=== PATIENT | female | born 1985 | race Caucasian/White ===

== ENCOUNTER 2019-07-03 19:25 | Emergency (ER) | payer SELFPAY ==
[~2019-07-03] VITALS: Ht 160 cm; Wt 68.9 kg
[2019-07-03] MEDS ORDERED: HYDROCODONE/APAP 10MG-325MG TAB PO ONE ×2 (20:30)
--- NOTE | 2019-07-03 21:18 | Diagnostic Imaging Report ---
EXAMINATION: Head CT without contrast. HISTORY:Status post fall. COMPARISON:None. TECHNIQUE: Multidetector axial images were obtained from the foramen magnum to the vertex without contrast. The images were reconstructed using brain and bone algorithms. Thin section brain images were reformatted into coronal and sagittal planes. Dose modulation, iterative reconstruction, and/or weight based adjustment of the mA/kV was utilized to reduce the radiation dose to as low as reasonably achievable. Intravenous contrast: None IMAGE QUALITY: Acceptable. FINDINGS: Skull/scalp: No lytic or blastic. lesions. No surgical changes. Parenchyma: No abnormal density. No acute hemorrhage, mass or acute major vascular territorial infarct. Arteries: No density suggestive of thrombosis. Dural sinuses: No abnormal density suggestive of thrombosis. Ventricles: No hydrocephalus or displacement. Extra-axial spaces: No abnormal density. Brain volume: Normal for age. Craniocervical junction: No mass, Chiari malformation, or basilar invagination. Sella: No mass. Paranasal/mastoid sinuses: Imaged portions unremarkable. IMPRESSION: No intracranial abnormality. Signed by: Dr. Sloane Melgoza M.D. on 07/03/2019 9:14 PM
--- NOTE | 2019-07-03 23:23 | Diagnostic Imaging Report ---
Cervical Spine, 3 views HISTORY: Pain. COMPARISON: None. FINDINGS: Limited sensitivity for detection of subtle fractures and ligamentous abnormalities. On the lateral view, the cervical spine is entirely visualized. Straightening of the cervical lordosis. No acute displaced fracture involving the visualized cervical spine. Disc Spaces and Uncovertebral Joints: Unremarkable. Facets: Mild sclerotic changes in the facets and the lower cervical spine. IMPRESSION: No acute radiographic abnormality. Minimal degenerative changes in the lower cervical spine. Signed by: Néstor Hale DO on 07/03/2019 11:19 PM
[2019-07-03 23:26] VITALS: BP 140/92
== END 2019-07-03 23:33 | disposition home or self-care (01) ==
LOC: ER 19:25
DX: S06.0X0A Concussion without loss of consciousness, initial encounter (principal); R51 Headache; M54.2 Cervicalgia; W18.30XA Fall on same level, unspecified, initial encounter; Y92.008 Other place in unspecified non-institutional (private) residence as the place of occurrence of the external cause
CPT/HCPCS: 70450; 72050; 99283

== ENCOUNTER 2019-08-16 07:56 | Emergency (ER) | payer SELFPAY ==
[~2019-08-16] VITALS: Ht 160 cm; Wt 68.9 kg
--- OUTSIDE RECORDS SUMMARY | 2019-08-16 07:59 | XMS REPORT ---
Author Author [facility] Address Unknown Phone Unavailable Care Team Providers Care Compression Molding Machine Operator Name Role Phone Abebe MADRIGAL Unavailable Unavailable Problems This patient has no known problems. Allergies, Adverse Reactions, Alerts This patient has no known allergies or adverse reactions. Medications This patient has no known medications. Results Test Description Test Time Test Comments Text Results Atomic Results Result Comments CERVICAL SPINE 4 OR 5 VIEWS 2019-07-03 23:17:00 [place] [address] Patient Name: VLAD GARZON MR #: [id number] : 1985 Age/Sex: 34/F Req #: [id number] Adm Physician: Ordered by: BRODIE MADRIGAL MD Report #: [id number] Location: ER Room/Bed: Procedure: [id number] DX/CERVICAL SPINE 4 OR 5 VIEWS Exam Date: 07/03/19 Exam Time: 2113 REPORT STATUS: Signed Cervical Spine, 3 views HISTORY: Pain. COMPARISON: None. FINDINGS: Limited sensitivity for detection of subtle fractures and ligamentous abnormalities. On the lateral view, the cervical spine is entirely visualized. Straightening of the cervical lordosis. No acute displaced fracture involving the visualized cervical spine. Disc Spaces and Uncovertebral Joints: Unremarkable. Facets: Mild sclerotic changes in the facets and the lower cervical spine. IMPRESSION: No acute radiographic abnormality. Minimal degenerative changes in the lower cervical spine. Signed by: Néstor Hale DO on 07/03/2019 11:19 PM Dictated By: NÉSTOR HALE DO 18 Transcribed By: SHAE on 07/03/192318 COPY TO: BRODIE MADRIGAL MD CT BRAIN WO 2019-07-03 21:12:00 [place] [address] Patient Name: VLAD GARZON MR #: [id number] : 1985 Age/Sex: 34/F Req #: [id number] Adm Physician: Ordered by: BRODIE MADRIGAL MD Report #: [id number] Location: ER Room/Bed: Procedure: [id number] CT/CT BRAIN WO Exam Date: Exam Time: REPORT STATUS: Signed EXAMINATION: Head CT without contrast. HISTORY:Status post fall. COMPARISON:None. TECHNIQUE: Multidetector axial images were obtained from the foramen magnum to the vertex without contrast. The images were reconstructed using brain and bone algorithms. Thin section brain images were reformatted into coronal and sagittal planes. Dose modulation, iterative reconstruction, and/or weight based adjustment of the mA/kV was utilized to reduce the radiati on dose to as low as reasonably achievable. Intravenous contrast: None IMAGE QUALITY: Acceptable. FINDINGS: Skull/scalp: No lytic or blastic. lesions. No surgical changes. Parenchyma: No abnormal density. No acute hemorrhage, mass or acute major vascular territorial infarct. Arteries: No density suggestive of thrombosis. Dural sinuses: No abnormal density suggestive of thrombosis. Ventricles: No hydrocephalus or displacement. Extra-axial spaces: No abnormal density. Brain volume: Normal for age. Craniocervical junction: No mass, Chiari malformation, or basilar invagination. Sella: No mass. Paranasal/mastoid sinuses: Imaged portions unremarkable. IMPRESSION: No intracranial abnormality. Signed by: Dr. Sloane Melgoza M.D. on 07/03/2019 9:14 PM Dictated By: SLOANE MELGOZA MD 13 Transcribed By: SHAE on 07/03/192113 COPY TO: BRODIE MADRIGAL MD
[2019-08-16] MEDS ORDERED: SODIUM CHLORIDE 0.9% 1000ML 1,000 ML IV STA (08:35)
[2019-08-16] MEDS ORDERED: KETOROLAC TROMETHAMINE 30 MG/ML VIAL IV STA (08:35)
--- NOTE | 2019-08-16 08:46 | Diagnostic Imaging Report ---
EXAMINATION: HAND 3+ VIEWS RIGHT INDICATION: Trauma, right hand pain COMPARISON: None FINDINGS: There is an acute minimally displaced fracture of the distal fifth metacarpal shaft with mild apex dorsal angulation of the dominant fracture fragments. Overlying dorsal hand soft tissue swelling. No other fracture or dislocation. Alignment is otherwise intact. No substantial degenerative change. IMPRESSION: Acute minimally displaced distal fifth metacarpal shaft fracture as above. Signed by: Geoffrey Michel MD on 08/16/2019 8:43 AM
== END 2019-08-16 09:48 | disposition home or self-care (01) ==
LOC: ER 07:56
DX: S62.336A Displaced fracture of neck of fifth metacarpal bone, right hand, initial encounter for closed fracture (principal); X79.XXXA Intentional self-harm by blunt object, initial encounter; Y92.008 Other place in unspecified non-institutional (private) residence as the place of occurrence of the external cause
CPT/HCPCS: 99284